=== PATIENT | female | born 1950 | race Caucasian/White ===

== ENCOUNTER 2024-07-28 06:57 | Day surgery (SDC) | payer MEDICARE, SELFPAY ==
[2024-07-28] VITALS (8 sets, daily range): BP systolic 94–115; BP diastolic 58–68; PULSE 66–82; RESP 16–18; TEMP 36.6; O2SAT 97–100; BMI 24.4
--- NOTE | 2024-07-28 07:16 | HP.PCM_ITS ---
HPI - General General Date of Admission: 07/28/24 Date of Service: 07/28/24 Chief Complaint: Personal history of polyps HPI Narrative PRAVEEN BARRIENTOS, is a 73 F who presents today for a surveillance colonoscopy. She had a colonoscopy approximate 5 years ago and had some polyps at that time. She has no personal history of colon cancer. She does have some seasonal allergies and takes supplements on a daily basis but her only past la dical history is hypertension. [facility] Medical History Wears glasses Arthritis Bladder disease High cholesterol History of IBS Gastric reflux Non-smoker IBS (irritable bowel syndrome) Dyspepsia Overactive bladder Hyperlipidemia Osteopenia GERD (gastroesophageal reflux disease) Home Medications ?Medication ?Instructions ?Recorded ?Last Taken ?Type ascorbic acid (vitamin C) 500 mg 500 mg PO BID 06/29/24 Unknown History tablet aspirin 81 mg tablet,delayed 81 mg PO DAILY 06/29/24 07/25/24 History release (Adult Low Dose Aspirin) atorvastatin 10 mg tablet 10 mg PO DAILY 06/29/24 Unknown History calcium carbonate (Calcium 600) 600 mg PO BID 06/29/24 Unknown History cholecalciferol (vitamin D3) 25 25 mcg PO DAILY 06/29/24 Unknown History mcg (1,000 unit) capsule dicyclomine 10 mg capsule 10 mg PO DAILY PRN abdominal pain 06/29/24 Unknown History esomeprazole magnesium 20 mg 20 mg PO DAILY PRN heartburn 06/29/24 Unknown History capsule,delayed release garlic 1,000 mg capsule 1,000 mg PO DAILY 06/29/24 Unknown History omega-3 fatty acids-fish oil 360 1 cap PO DAILY 06/29/24 Unknown History mg-1,200 mg capsule (Fish Oil) vitamin E (dl, acetate) 180 mg 180 mg PO DAILY 06/29/24 Unknown History (400 unit) capsule fexofenadine 60 mg tablet (Maryam 60 mg PO BID 07/26/24 Unknown History Allergy) oxybutynin chloride 15 mg 15 mg PO DAILY 07/26/24 Unknown History tablet,extended release 24 hr Allergy/AdvReac Type Severity Reaction Status Date / Time No Known Allergies Allergy Verified 07/28/24 07:14 Family History Mother Breast cancer Sister Breast cancer Surgical History Hx of breast biopsy Hx of hysterectomy Hx of esophagogastroduodenoscopy Hx of colonoscopy Social History household members: spouse current occupational status: retired Smoking Status: Never smoker alcohol intake: never substance use type: does not use ROS Review of Systems ROS Unobtainable: other Constitutional Constitutional: Denies fatigue, fever(s), poor appetite, weight gain or weight loss ENT HEENT: Denies mouth lesions Cardiovascular Cardiovascular: Denies abdominal bloating, abdominal edema or abdominal pain Respiratory/Chest Respiratory/Chest: Denies change in mental status, change in phlegm color, chest congestion or chest tightness Gastrointestinal Gastrointestinal: Denies belching, bloating, change in bowel habits, change in stool character, chewing difficulty, coffee ground emesis, constipation, cramping, diarrhea, dyspepsia, dysphagia, early satiety, excessive flatus, fecal incontinence, heartburn, hematemesis, hematochezia, hemorrhoids, loose stools, melena, nausea, odynophagia, rectal bleeding, tenesmus, vomiting or weight changes Genitourinary Genitourinary: Denies abdominal discomfort, burning urination or itching Musculoskeletal Musculoskeletal: Reports as per HPI; Denies muscle weakness or myalgias Integumentary Integumentary: Denies jaundice Neurologic Neurologic: Denies lack of coordination or weakness Psychiatric Psychiatric: Denies confusion, depression, memory loss, mood swings, paranoia or suicidal ideation Endocrine Endocrinology: Denies systems reviewed and no addt'l complaints, except as documented Hematologic/Lymphatic Hematologic/Lymphatic: Denies anemia, easy bleeding, easy bruising or lymphadenopathy Allergic/Immunologic Allergic/Immunologic: Denies systems reviewed and no addt'l complaints, except a s documented Physical Exam Const alert General Appearance: cooperative Orientation / Consciousness: oriented to person HEENT hearing grossly normal bilaterally Head and Scalp: normal to inspection Face and Sinus: face symmetric Nose: external nose normal Mouth: oral and palatal mucosa normal Eyes conjunctivae normal General Eye: normal appearance of both eyes Neck full ROM General: normal visual inspection Lymph Lymphatic: no lymphadenopathy noted Chest inspection of chest normal and palpation of chest normal Chest: symmetrical chest wall rise Resp normal respiratory effort Effort and Inspection: able to speak in complete sentences Cardio regular rate GI non-distended Percussion: normal to percussion Rectal Exam: deferred Neuro Speech: speech normal Gait (Neuro): normal gait Assessment & Plan Assessment/Plan (1) Encounter for screening for malignant neoplasm of colon: PLAN: She was explained alternatives, risk, benefits including not withstanding bleeding, infection, sepsis, perforation, need for emergent urgent . She will have an ASA of 3.
[2024-07-28] MEDS: Lactated Ringers 1,000 ML 15 ML IV (07:26)
--- NOTE | 2024-07-28 07:31 | PCM.PRE.AN2 ---
ASA Classification* ASA Classification ASA Classification: 2 Assessment & Plan Anesthesia* Anesthesia Assessment Anesthesia Assessment: Discussed sedation and/or anesthesia options, risks, benefits, and alternatives with patient/parents/legal guardian/POA. Questions invited. The patient/parents/legal guardian/POA seems to understand and agrees to proceed with anesthesia plan. Reviewed the physical assessment, medical history, allergy history and patient home medications list prior to surgery/procedure/anesthetic and documented any changes. Performed airway and anesthesia risk assessments. Anesthesia Type Anesthesia Type: MAC (see written pre anesthesia record for full assessment) Anesthesia Focused Assessment* Temperature: 97.9 F Pulse Rate: 66 Blood Pressure: 115/58 Respiratory Rate: 16 Pulse Ox: 100 Airway Assessment Mouth opens: >3 cm Mallampati Score: II Focused Labs Anesthesia Preop lab: CBC CHEMISTRY COAG Pre-Assessment Diagnosis/Proposed Procedure Planned Operative Procedure(s): COLONOSCOPY Anesthesia History Anesthesia History - route sales representative: Anesthesia History - route sales representative Hx Hospitalization No 07/26/24 11:21 Any Problems With Anesthesia No 07/26/24 11:21 Cholinesterase deficiency No 07/26/24 11:21 You/Your Family Experience No 07/26/24 11:21 fever (hyperthermia) with Relationship Recent Exposure to Contagious No 07/28/24 07:15 Disease Does patient have nerve No 07/26/24 11:21 stimulator Patient instructed to have device shut off --Does patient have Pacemaker No 07/28/24 07:15 or ICD? When Was Last Pacemaker Check QUESTION #4 FULL TEXT: You/Your Family Experience fever (hyperthermia) with Anesthesia Last Oral Intake Last Oral intake: Last Oral Intake NPO since 00:00 07/28/24 07:15 Meds taken in AM with sips of water? Meds patient instructed to take am of surgery PONV PONV - route sales representative: PONV - route sales representative Female Yes 07/26/24 11:21 HX of Motion Sickness No 07/26/24 11:21 HX of N/V After Surgery Yes 07/26/24 11:21 Non-Smoker No 07/26/24 11:21 Duration of Surgery greater No 07/26/24 11:21 than 60 minutes Number of Risk Factors 2 07/26/24 11:21 PONV Score Moderate Risk 07/26/24 11:21 Height & Weight Height & Weight: Anesthesia: Height & Weight Height 5 ft 3 in 07/28/24 07:15 Weight: 62.596 kg 07/28/24 07:15 Body Mass Index (BMI) 24.4 07/28/24 07:15 Respiratory Assessment Respiratory Assessment - route sales representative: Respiratory Tract Infection Hx - route sales representative Hx Respiratory Tract Infection No 07/26/24 11:21 STOP Sleep Apnea STOP Sleep Apnea - route sales representative: STOP Sleep Apnea - route sales representative Hx Hypertension No 07/26/24 11:21 Hx Sleep Apnea No 07/26/24 11:21 CPAP BIPAP Do you snore loudly (louder No 07/26/24 11:21 than talking or can be heard Do you often feel tired/ No 07/26/24 11:21 fatigued/ sleepy during daytime? Has anyone observed you stop No 07/26/24 11:21 breathing during sleep? STOP Results Negative 07/26/24 11:21 QUESTION #5 FULL TEXT : Do you snore loudly (louder than talking or can be heard through closed doors)? Tobacco Use History Tobacco Use History - route sales representative: Tobacco Use History - route sales representative Tobacco Use Smoking Status Never smoker 07/26/24 11:21 Hx Tobacco Use No 07/26/24 11:21 Years Smoking Packs Smoked per Day Smoking Cessation Date was within the last 15 years Hx Smoking Cessation Date Hx Smoking Cessation Counseling Hematologic Medial History Hematologic Hx - route sales representative: Hematologic Medical Hx - undercollar maker Hx of Blood Transfusion No 07/26/24 11:21 Hx of Transfusion in last 3 No 07/26/24 11:21 Months Date of Last Transfusion (if within last 3 months) Ever experience any problems No 07/26/24 11:21 with transfusion(s)? Specify any problems Hx of Preganancy in last 3 No 07/26/24 11:21 Months Nurse Filling Out Transfusion VLEHMAN 07/26/24 11:21 & Questions: Date: 07/26/24 07/26/24 11:21 Time: 11:28 07/26/24 11:21 Patient unable to answer at this time (ie. confused, unrespo /Reproduction History /Reproductive History - route sales representative: /Reproductive Hx- route sales representative Hx Now No 07/26/24 11:21 Gestational Age (in weeks): EDC: Hx Hx Para Hx Section SAB No 07/26/24 11:21 Active Medications Active Medications: Current Medications Generic Name Dose Route Start Last Admin Trade Name Freq PRN Reason Stop Dose Admin Lactated Ringer's 1,000 mls @ 15 mls/hr 07/28/24 07:15 07/28/24 07:26 IV 15 mls/hr .Q48H ALLAN Administration PFSH Medical History Wears glasses Arthritis Bladder disease High cholesterol History of IBS Gastric reflux Non-smoker IBS (irritable bowel syndrome) Dyspepsia Overactive bladder Hyperlipidemia Osteopenia GERD (gastroesophageal reflux disease) Home Medications ?Medication ?Instructions ?Recorded ?Last Taken ?Type ascorbic acid (vitamin C) 500 mg 500 mg PO BID 06/29/24 Unknown History tablet aspirin 81 mg tablet,delayed 81 mg PO DAILY 06/29/24 07/25/24 History release (Adult Low Dose Aspirin) atorvastatin 10 mg tablet 10 mg PO DAILY 06/29/24 Unknown History calcium carbonate (Calcium 600) 600 mg PO BID 06/29/24 Unknown History cholecalciferol (vitamin D3) 25 25 mcg PO DAILY 06/29/24 Unknown History mcg (1,000 unit) capsule dicyclomine 10 mg capsule 10 mg PO DAILY PRN abdominal pain 06/29/24 Unknown History esomeprazole magnesium 20 mg 20 mg PO DAILY PRN heartburn 06/29/24 Unknown History capsule,delayed release garlic 1,000 mg capsule 1,000 mg PO DAILY 06/29/24 Unknown History omega-3 fatty acids-fish oil 360 1 cap PO DAILY 06/29/24 Unknown History mg-1,200 mg capsule (Fish Oil) vitamin E (dl, acetate) 180 mg 180 mg PO DAILY 06/29/24 Unknown History (400 unit) capsule fexofenadine 60 mg tablet (Maryam 60 mg PO BID 07/26/24 Unknown History Allergy) oxybutynin chloride 15 mg 15 mg PO DAILY 07/26/24 Unknown History tablet,extended release 24 hr Allergy/AdvReac Type Severity Reaction Status Date / Time No Known Allergies Allergy Verified 07/28/24 07:14 Family History Mother Breast cancer Sister Breast cancer Surgical History Hx of breast biopsy Hx of hysterectomy Hx of esophagogastroduodenoscopy Hx of colonoscopy Social History household members: spouse current occupational status: retired Smoking Status: Never smoker alcohol intake: never substance use type: does not use Review of Systems (Anesthesia) ROS Narrative System reviewed and no additional complaints, except as documented.
--- NOTE | 2024-07-28 08:44 | OP.COLON_ITS ---
Patient Name: Roz Dick Procedure Date: 07/28/2024 8:17 AM Date of : 1950 Age: 73 Procedure: Colonoscopy Indications: High risk colon cancer surveillance: Personal history of colonic polyps Providers: Max Murphy DO Referring MD: Jeffry Nieves Do Medicines: Monitored Anesthesia Care Patient Profile: This is a 73 year old female. Refer to note in patient chart for documentation of history and physical. Last Colonoscopy: 5 years ago. Complications: No immediate complications. Procedure: Pre-Anesthesia Assessment: - Prior to the procedure, a History and Physical was performed, and patient medications and allergies were reviewed. The patient is competent. The risks and benefits of the procedure and the sedation options and risks were discussed with the patient. All questions were answered and informed consent was obtained. Patient identification and proposed procedure were verified by the physician in the pre-procedure area. Mental Status Examination: alert and oriented. Airway Examination: normal oropharyngeal airway and neck mobility. Respiratory Examination: clear to auscultation. CV Examination: normal. Prophylactic Antibiotics: The patient does not require prophylactic antibiotics. Prior Anticoagulants: The patient has taken no anticoagulant or antiplatelet agents except for NSAID medication. ASA Grade Assessment: II - A patient with mild systemic disease. After reviewing the risks and benefits, the patient was deemed in satisfactory condition to undergo the procedure. The anesthesia plan was to use monitored anesthesia care (MAC). Immediately prior to administration of medications, the patient was re-assessed for adequacy to receive sedatives. The heart rate, respiratory rate, oxygen saturations, blood pressure, adequacy of pulmonary ventilation, and response to care were monitored throughout the procedure. The physical status of the patient was re-assessed after the procedure. After I obtained informed consent, the scope was passed under direct vision. Throughout the procedure, the patient's blood pressure, pulse, and oxygen saturations were monitored continuously. The Colonoscope was introduced through the anus and advanced to the cecum, identified by appendiceal orifice and ileocecal valve. The colonoscopy was performed without difficulty. The patient tolerated the procedure well. The quality of the bowel preparation was poor. The ileocecal valve, the appendiceal orifice and the rectum were photographed. Scope In: 8:27:28 AM Scope Withdrawal Time 0 hours 7 minutes 45 seconds Scope Out: 8:39:49 AM Total Procedure Duration Time 0 hours 12 minutes 21 seconds Findings: The perianal and digital rectal examinations were normal. A large amount of stool was found in the rectum, in the recto-sigmoid colon, in the sigmoid colon, in the descending colon, at the splenic flexure, in the transverse colon, at the hepatic flexure, in the ascending colon and in the cecum, precluding visualization. Impression: - Preparation of the colon was poor. - Stool in the rectum, in the recto-sigmoid colon, in the sigmoid colon, in the descending colon, at the splenic flexure, in the transverse colon, at the hepatic flexure, in the ascending colon and in the cecum. - No specimens collected. Recommendation: - Discharge patient to home. - Resume previous diet. - Continue present medications. - Repeat colonoscopy because the bowel preparation was poor. Procedure Code(s): --- Professional --- 95045, Colonoscopy, flexible; diagnostic, including collection of specimen(s) by brushing or washing, when performed (separate procedure) CPT copyright 2021 [employer]. All rights reserved. The codes documented in this report are preliminary and upon label coder review may be revised to meet current compliance requirements. Max Murphy DO 07/28/2024 8:43:42 AM This report has been signed electronically. Number of Addenda: 0 Note Initiated On: 07/28/2024 8:17 AM
--- NOTE | 2024-07-28 08:44 | OP.CCLET_ITS ---
07/28/2024 Jeffry Nieves Do Re : Colonoscopy procedure for Roz Dick Dear Dr. Nieves This procedure was performed on July. My impressions and recommendations are as follows: Impressions : - Preparation of the colon was poor. - Stool in the rectum, in the recto-sigmoid colon, in the sigmoid colon, in the descending colon, at the splenic flexure, in the transverse colon, at the hepatic flexure, in the ascending colon and in the cecum. - No specimens collected. Recommendations : - Discharge patient to home. - Resume previous diet. - Continue present medications. - Repeat colonoscopy because the bowel preparation was poor. My findings are described in the full procedure note, which is enclosed. If I can be of further assistance, please feel free to contact me at . Sincerely, Max Murphy, 07/28/2024 8:43:42 AM This report has been signed electronically.
--- NOTE | 2024-07-28 08:47 | PCM.POST.ANE ---
Anesthesia: Postop Eval I Current Vital Signs Temperature: 97.9 F Pulse Rate: 82 Blood Pressure: 94/62 Respiratory Rate: 16 Pulse Ox: 97 Oxygen Delivery Method: Room Air Assessment Airway patent: Yes Spontaneous unlabored respirations: Yes Mental status: Asleep nausea: No Vomiting: No Anesthesia Complication: No Fluid Hydration Crystalloid volume administer (ml): 600 Total IV fluid infused: 600 Progress Note Anesthesia document: Postop Eval 1 completed: Yes
--- NOTE | 2024-07-28 09:10 | PCM.POSTANE2 ---
Anesthesia Postop Eval I Sum Postop Eval Completion status Anesthesia document: Postop Eval 1 completed: Yes Anesthesia Postop Eval I Summary Anesthesia Postop Eval I Summary: Anesthesia Postop Eval I: Assessment Summary Airway patent Yes 07/28/24 08:48 [email or web address] Spontaneous unlabored Yes 07/28/24 08:48 [email or web address] respirations Mental status Asleep 07/28/24 08:48 [email or web address] nausea No 07/28/24 08:48 [email or web address] Vomiting No 07/28/24 08:48 [email or web address] Anesthesia Postop Eval I: Fluid Summary Crystalloid volume administer 600 07/28/24 08:48 [email or web address] (ml) Colloids volume administered ( ml) Blood Product volume administered (ml) Total IV fluid infused 600 07/28/24 08:48 [email or web address] Anesthesia Postop Eval I: Summary Notes Anesthesia Complication No 07/28/24 08:48 [email or web address] Anesthesia Complication Comment: Post-operative progress note Anesthesia: Postop Eval II Evaluation Mental status: Awake Pain Level: 0 nausea: No Vomiting: No
== END 2024-07-28 09:45 | disposition home or self-care (01) ==
LOC: EN 06:59 → AC 07:00
PROVIDERS: Visit Provider Internal Medicine Gastroenterology
PROC: 0DJD8ZZ Inspection of Lower Intestinal Tract, Via Natural or Artificial Opening Endoscopic (ICD-10-PCS; CPT 45378; principal; 2024-07-28 08:10)
DX: Z12.11 Encounter for screening for malignant neoplasm of colon (principal); I10 Essential (primary) hypertension; Z79.82 Long term (current) use of aspirin; E78.00 Pure hypercholesterolemia, unspecified; Z86.010 Personal history of colon polyps; Z79.899 Other long term (current) drug therapy; K21.9 Gastro-esophageal reflux disease without esophagitis; Z90.710 Acquired absence of both cervix and uterus
CPT/HCPCS: 45378; J7120; J2405